=== PATIENT | male | born 1985 | race Caucasian/White ===

== ENCOUNTER 2016-12-14 15:33 | Emergency (ER) | payer OTHER ==
[2016-12-14 16:50] VITALS: BP 151/82; PULSE 60; RESP 16; TEMP 98; O2SAT 97
[2016-12-14 17:05] LABS: AMPHETAMINE, URINE NEG (NEG); BARBITURATES, URINE NEG (NEG); COCAINE, URINE NEG (NEG)
--- NOTE | 2016-12-14 17:10 | PD ---
HPI Chief Complaint: Psychiatric Symptoms Time Seen by Provider: 16:55 Travel History International Travel<30 days: No Contact w/Intl Traveler<30days: No Traveled to known affect area: No History of Present Illness HPI 31-year-old male with history of autism presents under Carrillo act initiated by the [employer]. According to his paperwork the patient has been "blanking out" and not responding to questions. He intermittently snaps out of it and cannot function well on his own. The patient reports that he lives with his mother. According to nurse the patient lives with another woman who has power of commercial litigation attorney over him. This woman told the nurse that the patient has been acting depressed and has been less interactive, primarily watching TV at home. The patient reports that he feels "fine" and he has no complaints. He denies any pain, recent illness, fevers or chills, depression, suicidal or homicidal thoughts. He denies any drug use. He has no complaints at this time. PFSH Past Medical History Narrative Medical Autism ?: Not Social History Alcohol Use: Yes Tobacco Use: Yes Allergies-Medications (Allergen,Severity, Reaction): Coded Allergies: No Known Allergies (Unverified , 12/14/16) Per pt & Lucio Roque Pharmacist [phone]. Reported Meds & Prescriptions Reported Meds & Active Scripts Active Reported Amlodipine (Amlodipine Besylate) 5 Mg Tab 5 Mg PO DAILY Review of Systems Except as stated in HPI: all other systems reviewed are Neg Physical Exam Narrative GENERAL: This is a pleasant well-developed well-nourished male in no acute distress responding to commands appropriately. SKIN: Warm and dry. HEAD: Atraumatic. Normocephalic. EYES: Pupils equal and round. No scleral icterus. No injection or drainage. ENT: No nasal bleeding or discharge. Mucous membranes pink and moist. NECK: Trachea midline. No JVD. CARDIOVASCULAR: Regular rate and rhythm. No murmur appreciated. RESPIRATORY: No accessory muscle use. Clear to auscultation. Breath sounds equal bilaterally. GASTROINTESTINAL: Abdomen soft, non-tender, nondistended. Hepatic and splenic margins not palpable. MUSCULOSKELETAL: No obvious deformities. No clubbing. No cyanosis. No edema. NEUROLOGICAL: Awake and alert. No obvious cranial nerve deficits. Motor grossly within normal limits. Normal speech. Alert and oriented to person, place, time. No meningeal signs. PSYCHIATRIC: Flat affect. Insight and judgment appear limited. Data Data Last Documented VS Vital Signs Date Time Temp Pulse Resp B/P Pulse Ox O2 Delivery O2 Flow Rate FiO2 12/14/16 16:50 98.0 60 16 151/82 97 Room Air Orders Complete Blood Count With Diff (12/14/16 16:43) Comprehensive Metabolic Panel (12/14/16 16:43) Psych Screen (12/14/16 16:43) Drug Screen, Random Urine (12/14/16 16:43) Urinalysis - C+S If Indicated (12/14/16 16:43) Labs Laboratory Tests Test 12/14/16 12/14/16 16:50 18:18 Urine Color YELLOW Urine Turbidity CLEAR Urine pH 6.0 Urine Specific Smoot 1.005 Urine Protein NEG mg/dL Urine Glucose (UA) NEG mg/dL Urine Ketones NEG mg/dL Urine Occult Blood NEG Urine Nitrite NEG Urine Bilirubin NEG Urine Urobilinogen LESS THAN 2.0 MG/DL Urine Leukocyte Esterase NEG Urine WBC LESS THAN 1 /hpf Microscopic Urinalysis Comment CULT NOT INDICATED Urine Opiates Screen NEG Urine Barbiturates Screen NEG Urine Amphetamines Screen NEG Urine Benzodiazepines Screen NEG Urine Cocaine Screen NEG Urine Cannabinoids Screen NEG White Blood Count 10.8 TH/MM3 Red Blood Count 5.42 MIL/MM3 Hemoglobin 16.7 GM/DL Hematocrit 50.4 % Mean Corpuscular Volume 93.0 FL Mean Corpuscular Hemoglobin 30.8 PG Mean Corpuscular Hemoglobin 33.2 % Concent Red Cell Distribution Width 12.3 % Platelet Count 217 TH/MM3 Mean Platelet Volume 8.8 FL Neutrophils (%) (Auto) 67.7 % Lymphocytes (%) (Auto) 20.8 % Monocytes (%) (Auto) 10.4 % Eosinophils (%) (Auto) 0.5 % Basophils (%) (Auto) 0.6 % Neutrophils # (Auto) 7.3 TH/MM3 Lymphocytes # (Auto) 2.2 TH/MM3 Monocytes # (Auto) 1.1 TH/MM3 Eosinophils # (Auto) 0.1 TH/MM3 Basophils # (Auto) 0.1 TH/MM3 CBC Comment DIFF FINAL Differential Comment Sodium Level 137 MEQ/L Potassium Level 4.6 MEQ/L Chloride Level 105 MEQ/L Carbon Dioxide Level 24.5 MEQ/L Anion Gap 8 MEQ/L Blood Urea Nitrogen 11 MG/DL Creatinine 1.12 MG/DL Estimat Glomerular Filtration 78 ML/MIN Rate Random Glucose 83 MG/DL Calcium Level 9.8 MG/DL Total Bilirubin 0.8 MG/DL Aspartate Amino Transf 26 U/L (AST/SGOT) Alanine Aminotransferase 22 U/L (ALT/SGPT) Alkaline Phosphatase 111 U/L Total Protein 7.4 GM/DL Albumin 4.1 GM/DL MDM Medical Decision Making Medical Screen Exam Complete: Yes Emergency Medical Condition: Yes Medical Record Reviewed: Yes Differential Diagnosis Autism, major depressive disorder, acute psychosis, substance induced mood disorder, encephalitis Narrative Course 31-year-old male presents under Carrillo act for psychiatric evaluation. Mental health screening discussed with the patient. Psychiatric screen ordered. The lab work has been reviewed. The patient is medically cleared for psychiatric disposition. Diagnosis Primary Impression: Naman Calhoun Dec 14, 2016 17:10
[2016-12-14 18:38] LABS: AUTOMATED NEUTROPHIL # 7.3 TH/MM3 (1.8-7.7); BASOPHIL # 0.1 TH/MM3 (0-0.2); BASOPHIL % 0.6 % (0.0-2.0); EOSINOPHIL # 0.1 TH/MM3 (0-0.4); EOSINOPHIL % 0.5 % (0.0-4.0); HEMATOCRIT 50.4 % (39.0-51.0); HEMO FLAGS DIFF FINAL; LYMPH % 20.8 % (9.0-44.0); LYMPHOCYTE # 2.2 TH/MM3 (1.0-4.8); MEAN CORPUSCULAR HEMOGLOBIN 30.8 PG (27.0-34.0); MEAN CORPUSCULAR HGB CONC 33.2 % (32.0-36.0); MONO % 10.4 % (0.0-8.0); NEUT % 67.7 % (16.0-70.0); PLATELET COUNT 217 TH/MM3 (150-450); RED BLOOD COUNT 5.42 MIL/MM3 (4.50-5.90); RED CELL DISTRIBUTION WIDTH 12.3 % (11.6-17.2); WHITE BLOOD COUNT 10.8 TH/MM3 (4.0-11.0)
[2016-12-14 18:46] LABS: BLOOD, URINE NEG (NEG); GLUCOSE,URINE NEG (NEG); KETONE, URINE NEG (NEG); NITRITE,URINE NEG (NEG); URINE COLOR YELLOW (YELLW/STRAW)
[2016-12-14 18:51] LABS: COMMENT (UR) CULT NOT INDICATED; CULTURE IF INDICATED CULT NOT INDICATED
[2016-12-14] MEDS ORDERED: AMLO5TAB2 PO (19:02)
[2016-12-14 19:13] LABS: ALT (GPT) 22 U/L (12-78)
[2016-12-14 19:14] LABS: ALKALINE PHOSPHATASE 111 U/L (45-117); TOTAL BILIRUBIN ADULT 0.8 MG/DL (0.2-1.0)
[2016-12-14 19:33] LABS: ANION GAP 8 MEQ/L (5-15); AST (GOT) 26 U/L (15-37); BICARBONATE 24.5 MEQ/L (21.0-32.0); BLOOD UREA NITROGEN 11 MG/DL (7-18); CHLORIDE 105 MEQ/L (98-107); GLOMERULAR FILTRATION RATE 78 ML/MIN (>89); POTASSIUM 4.6 MEQ/L (3.5-5.1); SODIUM (NA) 137 MEQ/L (136-145)
[2016-12-14 22:18] VITALS: BP 140/72; PULSE 93; RESP 20; TEMP 98.9; O2SAT 97
[2016-12-15 07:06] VITALS: BP 151/75; PULSE 83; RESP 18; O2SAT 100
[2016-12-15 11:12] VITALS: BP 147/71; PULSE 66; RESP 18; O2SAT 97
== END 2016-12-15 15:44 | disposition home or self-care (01) ==
LOC: NEPJ 15:33
DX: F84.0 Autistic disorder (principal); Z72.0 Tobacco use
CPT/HCPCS: 80053; 80307; 81001; 85025; 99283